=== PATIENT | male | born 1950 | race Caucasian/White ===

== ENCOUNTER → 2019-12-05 | Day surgery (SDC) | payer OTHER ==
--- NOTE | 2019-12-05 17:03 | RAD REPORT ---
EXAM DESCRIPTION: US - Guided FNA Non Breast - 12/05/2019 10:28 am CLINICAL HISTORY: E04.1 COMPARISON: September 2019 ultrasound TECHNIQUE: Risks, benefits and alternatives of procedure explained to the patient and informed conse nt obtained. Skin and subcutaneous tissues anesthetized with lidocaine. Under sonographic guidance, six 25 gauge needle passes were obtained into the dominant nodule within the left lobe of the thyroid gland. Specimens given to pathology. Patient experienced no immediate complication IMPRESSION: Fine-needle aspiration of a dominant nodule within left lobe of thyroid gland
== END ==
LOC: FNA 09:44
PROVIDERS: ATTEND Family Medicine
PROC: 0G9G3ZX Drainage of Left Thyroid Gland Lobe, Percutaneous Approach, Diagnostic (ICD-10-PCS; principal; 2019-12-05)
DX: E04.1 Nontoxic single thyroid nodule (principal)
CPT/HCPCS: 88162; 88305

== ENCOUNTER 2023-11-08 13:08 | Observation (INO) | payer OTHER ==
--- OUTSIDE RECORDS SUMMARY | 2023-11-08 13:11 | XMS REPORT | Continuity of Care Document ---
Author Name Unknown Address [address] [place] [address]. [address] th[address] Address [address] [facility]. 1 495 [place] [address] Care Team Providers Care Weaver Dobby Loom Name Role Phone Unavailable Unavailable Unavailable Payers Payer Name Policy Type Policy Number Effective Date Expirati on Date Source [facility] [id number] Encounters Start Date/Time End Date/Time Encounter Type Admission Type Attending [facility] Care Facility Care Department Encounter ID Source 2021-05-01 08:11:17 Outpatient [facility] [id number] [facility]
[2023-11-08 13:52] LABS: Absolute Basophils 0.1 K/uL (0-0.5); Absolute Lymphocytes (CBC) 1.1 K/uL (0.7-4.9); Absolute Monocytes 0.8 K/uL (0.1-1.3); Absolute Neutrophil 5.8 K/uL (1.8-8.0); Basophils % 1.1 % (0-1.3); Eosinophils % 0.4 % (0-4.4); Hematocrit 48.1 % (39.6-49.0); Hemoglobin 16.3 g/dL (13.6-17.9); Lymphocytes % 14.3 % (15.3-44.8); MCH 30.6 pg (27.0-35.0); MPV 9.4 fL (7.6-11.3); Monocytes % 10.6 % (3.3-12.3); Neutrophils % 73.6 % (41.7-73.7); Nucleated Red Blood Cells % 0.1 % (0-0); Platelets 158 thou/uL (152-406); RBC Red Blood Cell Count 5.34 M/uL (4.33-5.43); Red Cell Distribution Width 13.3 % (12.1-15.2)
[2023-11-08 14:17] LABS: Albumin 4.1 g/dL (3.4-5.0); Albumin/Globulin Ratio 1.2 (1.1-1.8); Bilirubin Direct 0.2 mg/dL (0-0.2); Bilirubin Indirect, Calculated 0.4 mg/dL (0.2-0.8); Bilirubin Total 0.6 mg/dL (0.2-1.0); Globulin 3.3 g/dL (2.3-3.5); Magnesium 2.1 mg/dL (1.6-2.4); Protein, Total 7.4 g/dL (6.4-8.2); Thyroid Stimulating Hormone 1.62 uIU/mL (0.358-3.740)
--- NOTE | 2023-11-08 14:49 | RAD REPORT ---
EXAM DESCRIPTION: [place] Single View11/08/2023 2:20 pm CLINICAL HISTORY: CHEST PAIN COMPARISON: No comparisons TECHNIQUE: Portable AP view of the chest. FINDINGS: The lungs are clear. No pneumothorax or effusion. The cardiomediastinal contours are unre markable. IMPRESSION: No acute cardiopulmonary process.
--- NOTE | 2023-11-08 17:09 | ER ---
Nurse's Notes [facility] Name: Roland Barton Age: 73 yrs Sex: Male : 1950 Arrival Date: 11/08/2023 Time: 13:08 Bed 4 Private MD: Rigo Arrieta Diagnosis: Nonsustained V. tach Presentation: 11/07 13:21 Chief complaint: Patient states: sent from Dr. Arrieta office, possible Vtach, has been iw having episodes of passing out over past 2 weeks. Coronavirus screen: At this time, the client does not indicate any symptoms associated with coronavirus-19. Ebola Screen: Patient negative for fever greater than or equal to 101.5 degrees Fahrenheit, and additional compatible Ebola Virus Disease symptoms Patient denies exposure to infectious person. Patient denies travel to an Ebola-affected area in the 21 days before illness onset. No symptoms or risks identified at this time. Initial Sepsis Screen: Does the patient meet any 2 criteria? No. Patient's initial sepsis screen is negative. Does the patient have a suspected source of infection? No. Patient's initial sepsis screen is negative. Risk Assessment: Do you want to hurt yourself or someone else? Patient reports no desire to harm self or others. 13:21 Method Of Arrival: Ambulatory iw 13:21 Acuity: ALEXIA 2 iw 13:31 Onset of symptoms was November 08, 2023. db Triage Assessment: 13:31 General: Appears in no apparent distress. comfortable, Behavior is calm, cooperative. db Pain: Denies pain. Neuro: Level of Consciousness is awake, alert, obeys commands, Oriented to person, place, time, situation, Cost Coordinator are. Cardiovascular: Reports lightheadedness, syncope. Respiratory: Airway is patent Respiratory effort is even, unlabored, Respiratory pattern is regular, symmetrical. GI: No deficits noted. No signs and/or symptoms were reported involving the gastrointestinal system. : No deficits noted. No signs and/or symptoms were reported regarding the genitourinary system. Derm: No deficits noted. No signs and/or symptoms reported regarding the dermatologic system. Historical: - Allergies: 13:31 No Known Allergies; db - PMHx: 13:31 None; db - Immunization history:: Adult Immunizations unknown. - Infectious Disease History:: Denies. - Social history:: Smoking status: Patient denies any tobacco usage or history of. - Family history:: not pertinent. Screenin:24 [facility] ED Fall Risk Assessment (Adult) History of falling in the last 3 months, db including since admission No falls in past 3 months (0 pts) Confusion or Disorientation No (0 pts) Intoxicated or Sedated No (0 pts) Impaired Gait No (0 pts) Mobility Assist Device Used No (0 pt) Altered Elimination No (0 pt) Score/Fall Risk Level 0 - 2 = Low Risk Oriented to surroundings, Maintained a safe environment. Abuse screen: Denies threats or abuse. Denies injuries from another. Nutritional screening: No deficits noted. Tuberculosis screening: No symptoms or risk factors identified. Assessment: 14:24 Reassessment: Patient appears in no apparent distress at this time. Patient and/or db family updated on plan of care and expected duration. Pain level reassessed. Patient is alert, oriented x 3, equal unlabored respirations, skin warm/dry/pink. General: Appears in no apparent distress. comfortable, Behavior is calm, cooperative, quiet. Neuro: Level of Consciousness is awake, alert, obeys commands, Oriented to person, place, time, situation. Respiratory: Airway is patent Respiratory effort is even, unlabored, Respiratory pattern is regular, symmetrical. 16:30 Reassessment: Patient appears in no apparent distress at this time. Patient is alert, bp oriented x 3, equal unlabored respirations, skin warm/dry/pink. 17:57 Reassessment: ADMIT INITIATED. bp 19:16 Reassessment: Patient and/or family updated on plan of care and expected duration. Pain tm6 level reassessed. Patient is alert, oriented x 3, equal unlabored respirations, skin warm/dry/pink. Vital Signs: 13:12 BP 170 / 104; Pulse 86; Resp 19; Temp 98.6; Pulse Ox 98% on R/A; Weight 97.52 kg; db Height 6 ft. 5 in. ; 14:00 BP 158 / 94; Pulse 85; Resp 18; Pulse Ox 95% on R/A; db 14:30 BP 159 / 107; Pulse 91; Resp 18; Pulse Ox 95% on R/A; db 16:30 BP 162 / 111; Pulse 82; Resp 24; Pulse Ox 96% ; bp 17:57 BP 135 / 87; Pulse 78; Resp 23; Pulse Ox 95% ; bp 19:15 BP 132 / 86; Pulse 95; Pulse Ox 95% on R/A; Pain 0/10; tm6 13:12 Body Mass Index 25.50 (97.52 kg, 195.58 cm) db 19:15 Pain Scale: Adult tm6 Aristides Coma Score: 20:27 Eye Response: spontaneous(4). Motor Response: obeys commands(6). Verbal Response: rv oriented(5). Total: 15. ED Course: 13:10 Patient arrived in ED. rg4 13:11 Rigo Arrieta MD is Private Physician. rg4 13:12 Carolina Arreola, RN is Primary Nurse. db 13:12 Jose Gonsalez MD is Attending Physician. rt 13:20 EKG done, by ED staff, reviewed by Jose Gonsalez MD. db 13:23 Triage completed. iw 13:23 Arm band placed on. iw 13:32 Troponin HS Sent. bp 13:32 NT PRO-BNP Sent. bp 13:32 Magnesium Sent. bp 13:32 LFT's Sent. bp 13:32 CBC with Diff Sent. bp 13:32 Basic Metabolic Panel Sent. bp 13:32 TSH Sent. bp 13:33 Inserted saline lock: 22 gauge in right forearm, using aseptic technique. Blood bp collected. 14:22 XRAY Chest (1 view) In Process Unspecified. EDMS 14:27 Patient has correct armband on for positive identification. Bed in low position. Call db light in reach. Side rails up X 1. Client placed on continuous cardiac and pulse oximetry monitoring. NIBP monitoring applied. property assessment monitor on. Pulse ox on. NIBP on. Warm blanket given. 17:08 Vu Velazquez MD is Hospitalizing Provider. rt 19:15 Provided Education on: wait time on hospital bed. Door closed. Noise minimized. Lights tm6 dimmed. Warm blanket given. Pillow given. 20:27 No provider procedures requiring assistance completed. Patient admitted, IV remains in rv place. Administered Medications: No medications were administered Medication: 14:24 VIS not applicable for this client. db Outcome: 17:08 Decision to Hospitalize by Provider. rt 20:27 Admitted to Tele accompanied by tech, via wheelchair, with chart, Report called to rv report faxed to 4th floor 20:27 Condition: good 20:27 Instructed on the need for admit, 20:42 Patient left the ED. rv Signatures: Dispatcher [employer] EDJudith Pruett, RN Tabatha Patton rg4 Wicho Fitch RN RN bp Naveen Birscoe RN RN rv Carolina Arreola RN RN db Jose Gonsalez MD MD rt Leslye Choi RN RN tm6 Corrections: (The following items were deleted from the chart) 14:23 13:12 BP 170 / 104; Pulse 86bpm; Resp 19bpm; Pulse Ox 98% RA; db db 14:24 13:12 BP 170 / 104; Pulse 86bpm; Resp 19bpm; Pulse Ox 98% RA; Temp 98.6F; db db
--- NOTE | 2023-11-08 17:09 | EDPHYS ---
Physician Documentation [facility] Name: Roland Barton Age: 73 yrs Sex: Male : 1950 Arrival Date: 11/08/2023 Time: 13:08 Bed 4 Private MD: Rigo Arrieta ED Physician Jose Gonsalez HPI: 11/07 14:09 This 73 yrs old Male presents to ER via Ambulatory with complaints of Abnormal EKG. rt 14:09 Patient presents to the ED from his primary care's office for having episodes of near rt syncope as well as ventricular tachycardia. This first happened a few weeks ago, patient was in [place], went to the hospital with a negative workup. Has never lost consciousness completely, but states that he gets very nauseated, short of breath when it happens. Status several episodes since then. Did have 1 episode his primary's office today. Did wear Holter monitor, finding episodes of V. tach. Currently, he has no symptoms. Symptoms are moderate in severity, no other aggravating or alleviating factors.. Historical: - Allergies: 13:31 No Known Allergies; db - PMHx: 13:31 None; db - Immunization history:: Adult Immunizations unknown. - Infectious Disease History:: Denies. - Social history:: Smoking status: Patient denies any tobacco usage or history of. - Family history:: not pertinent. ROS: 14:09 Constitutional: Negative for fever, chills, and weight loss, Cardiovascular: Negative rt for chest pain, palpitations, and edema, Respiratory: Negative for shortness of breath, cough, wheezing, and pleuritic chest pain, MS/Extremity: Negative for injury and deformity, Skin: Negative for injury, rash, and discoloration, Psych: Negative for depression, anxiety, suicide ideation, homicidal ideation, and hallucinations, 14:09 Abdomen/GI: Positive for nausea, Negative for abdominal pain, 14:09 Neuro: Positive for near syncope, Negative for loss of consciousness, Exam: 14:09 Constitutional: This is a well developed, well nourished patient who is awake, alert, rt and in no acute distress. Head/Face: Normocephalic, atraumatic. Chest/axilla: Normal chest wall appearance and motion. Nontender with no deformity. No lesions are appreciated. Cardiovascular: Regular rate and rhythm with a normal S1 and S2. No gallops, murmurs, or rubs. Normal PMI, no JVD. No pulse deficits. Respiratory: Lungs have equal breath sounds bilaterally, clear to auscultation and percussion. No rales, rhonchi or wheezes noted. No increased work of breathing, no retractions or nasal flaring. Abdomen/GI: Soft, non-tender, with normal bowel sounds. No distension or tympany. No guarding or rebound. No evidence of tenderness throughout. Skin: Warm, dry with normal turgor. Normal color with no rashes, no lesions, and no evidence of cellulitis. MS/ Extremity: Pulses equal, no cyanosis. Neurovascular intact. Full, normal range of motion. Neuro: Awake and alert, GCS 15, oriented to person, place, time, and situation. Cranial nerves II-XII grossly intact. Motor strength 5/5 in all extremities. Sensory grossly intact. Cerebellar exam normal. Normal gait. 14:09 ECG was reviewed by the Attending Physician. rt Vital Signs: 13:12 BP 170 / 104; Pulse 86; Resp 19; Temp 98.6; Pulse Ox 98% on R/A; Weight 97.52 kg; db Height 6 ft. 5 in. ; 14:00 BP 158 / 94; Pulse 85; Resp 18; Pulse Ox 95% on R/A; db 14:30 BP 159 / 107; Pulse 91; Resp 18; Pulse Ox 95% on R/A; db 16:30 BP 162 / 111; Pulse 82; Resp 24; Pulse Ox 96% ; bp 17:57 BP 135 / 87; Pulse 78; Resp 23; Pulse Ox 95% ; bp 19:15 BP 132 / 86; Pulse 95; Pulse Ox 95% on R/A; Pain 0/10; tm6 13:12 Body Mass Index 25.50 (97.52 kg, 195.58 cm) db 19:15 Pain Scale: Adult tm6 [place] Coma Score: 20:27 Eye Response: spontaneous(4). Motor Response: obeys commands(6). Verbal Response: rv oriented(5). Total: 15. MDM: 13:12 Patient medically screened. rt 18:44 Differential Diagnosis Dysrhythmia, ACS. Data reviewed: vital signs, nurses notes, lab rt test result(s), EKG, radiologic studies. Consideration of Admission/Observation Patient was admitted/placed on observation. Management of patient was discussed with the following: Sand Digger: Discussed with cardiology on-call, recommends n.p.o. past midnight, echocardiogram.. Independent interpretation of the following test(s) in the Emergency Department X-Ray: My interpretation is No edema seen on interpretation of x-ray images. Care significantly affected by the following chronic conditions: Hypertension. Counseling: I had a detailed discussion with the patient and/or guardian regarding the historical points, exam findings, and any diagnostic results supporting the discharge/admit diagnosis, lab results, radiology results, the need for further work-up and treatment in the hospital. 11/07 13:25 Order name: Basic Metabolic Panel; Complete Time: 14:19 rt 11/07 13:25 Order name: CBC with Diff; Complete Time: 14:09 rt 11/07 13:25 Order name: LFT's; Complete Time: 14:19 rt 11/07 13:25 Order name: Magnesium; Complete Time: 14:19 rt 11/07 13:25 Order name: NT PRO-BNP; Complete Time: 14:19 rt 11/07 13:25 Order name: Troponin HS; Complete Time: 14:19 rt 11/07 13:25 Order name: TSH; Complete Time: 14:19 rt 11/07 13:25 Order name: XRAY Chest (1 view); Complete Time: 14:53 rt 11/07 13:25 Order name: Cardiac monitoring; Complete Time: 13: rt 11/07 13:25 Order name: EKG - Nurse/Tech; Complete Time: 13:26 rt 11/07 13:25 Order name: IV Saline Lock; Complete Time: 13: rt 11/07 13:25 Order name: Labs collected and sent; Complete Time: 13:32 rt 11/07 13:25 Order name: O2 Per Protocol; Complete Time: 13: rt 11/07 13:25 Order name: O2 Sat Monitoring; Complete Time: : rt EC:09 Rate is 84 beats/min. Rhythm is regular, Normal Sinus Rhythm with No ectopy, rt Bifascicular block noted. QRS [place] is Normal. OR interval is normal. QRS interval is normal. No Q waves. Administered Medications: No medications were administered Disposition Summary: 11/08/23 17:08 Hospitalization Ordered Notes: Hospitalization Status: Observation rt Provider: Vu Velazuqez rt Location: Telemetry/MedSurg (observation) rt Condition: Stable rt Problem: new rt Symptoms: have improved rt Bed/Room Type: Standard rt Room Assignment: 426(11/08/23 19:43) wm Diagnosis - Nonsustained V. tach rt Forms: - Medication Reconciliation Form rt - SBAR form rt - Leadership Thank You Letter rt Signatures: Dispatcher [employer] EDMS Lacey Baron wm Carolina Arreola RN RN db Jose Gonsalez MD MD rt Corrections: (The following items were deleted from the chart) 13:26 13:26 BASIC METABOLIC PANEL+C.LAB.BRZ ordered. EDMS EDMS 13:26 13:26 CBC+H.LAB.BRZ ordered. EDMS EDMS 13:26 13:26 HEPATIC FUNCTION+C.LAB.BRZ ordered. EDMS EDMS 13:26 13:26 MAGNESIUM+C.LAB.BRZ ordered. EDMS EDMS 13:26 13:26 PROBNP+C.LAB.BRZ ordered. EDMS EDMS 13:26 13:26 Troponin High Sensitivity+C.LAB.BRZ ordered. EDMS EDMS 13:26 13:26 THYROID STIMULAT HORMONE+C.LAB.BRZ ordered. EDMS EDMS 13:26 13:26 Chest Single View+RAD.RAD.BRZ ordered. EDMS EDMS 19:43 17:08 rt wm
--- NOTE | 2023-11-08 17:42 | P.HP ---
Certification for Inpatient Patient admitted to: Observation With expected LOS: <2 Midnights Patient will require the following post-hospital care: None Practitioner: I am a practitioner with admitting privileges, knowledge of patient current condition, hospital course, and medical plan of care. Services: Services provided to patient in accordance with Admission requirements found in Title 42 Section 412.3 of the Code of Federal Regulations Patient History Date of Service: 11/08/23 Reason for admission: Ventricular arrhythmia History of Present Illness: 73-year-old male with history of hyperlipidemia, BPH presents emergency department after being referred here by her primary care doctor for abnormal heart monitor testing. Approximately 1 week ago he was given a Holter monitor or other cardiac monitoring device which she wore for 2 days and his primary care doctor sent him here stating that he had many "ventricular beats". Patient does admit to episodes of shortness of breath, nausea, near syncope in the last 4 weeks. Patient denies any previous cardiac evaluation including echocardiogram, stress test or heart catheterization. Patient was evaluated in the emergency department, EKG showed bifascicular block. Labs were significant for creatinine of 1.3, GFR 57, glucose 129 magnesium and potassium within normal limits. ED prior wishes to admit patient for suspected ventricular arrhythmia, near syncope - Past Medical/Surgical History -: Hyperlipidemia -: BPH -: None Psychosocial/ Personal History: Patient is retired, lives home with his - Family History Father -: Heart disease - Social History Smoking Status: Never smoker Alcohol use: Yes CD- Drugs: No Caffeine use: Yes Place of Residence: Home Review of Systems 10-point ROS is otherwise unremarkable Respiratory: Shortness of Breath Gastrointestinal: Nausea Physical Examination - Physical Exam General: Alert, In no apparent distress, Oriented x3 HEENT: Atraumatic, PERRLA, Mucous membr. moist/pink Neck: Supple, 2+ carotid pulse no bruit, No LAD Respiratory: Clear to auscultation bilaterally, Normal air movement Cardiovascular: Regular rate/rhythm, Normal S1 S2 Gastrointestinal: Normal bowel sounds, No tenderness Musculoskeletal: No tenderness Integumentary: No rashes Neurological: Normal speech, Normal strength at 5/5 x4 extr, Normal tone, Normal affect - Studies Laboratory Data (last 24 hrs) 11/08/23 11/08/23 13:35 13:35 WBC 7.80 Hgb 16.3 Hct 48.1 Plt Count 158 Sodium 140 Potassium 4.0 BUN 23 H Creatinine 1.31 H Glucose 129 H Magnesium 2.1 Total Bilirubin 0.6 AST 17 ALT 37 Alkaline Phosphatase 55 Assessment and Plan - Plan Assessment: Near syncopal episodes, reported ventricular arrhythmia Bifascicular block Hyperlipidemia BPH Plan: Near syncopal episodes, reported ventricular arrhythmia Bifascicular block Cardiology consulted, contacted by ED staff Monitor on telemetry, n.p.o. after midnight for possible cardiac evaluation EKG shows bifascicular block Appreciate further input from cardiology Hyperlipidemia BPH Continue medications once verified DVT PPX: Lovenox Code status: Full Discharge Plan: Home Plan to discharge in: 24 Hours - Advance Directives Does patient have a Living Will: No Does patient have a Durable POA for Healthcare: No - Code Status/Comfort Care Code Status Assessed: Yes (Full code) Critical Care: No Time Spent Managing Pts Care (In Minutes): 70
[2023-11-08] MEDS ORDERED: ACETAMINOPHEN 500 MG TAB PO PRN (20:51)
[2023-11-08 21:20] VITALS: O2SAT 95
[2023-11-08] MEDS: ROSUVASTATIN 10 MG TAB PO SCH (21:40)
[2023-11-08] MEDS: NA CHLORIDE 0.9% 1,000 ML IV SCH (21:42)
[2023-11-08 22:19] VITALS: BMI 25.4
[2023-11-09 06:48] LABS: Absolute Basophils 0.1 K/uL (0-0.5); Absolute Eosinophils 0.1 K/uL (0-0.5); Absolute Lymphocytes (CBC) 1.7 K/uL (0.7-4.9); Absolute Neutrophil 5.6 K/uL (1.8-8.0); Basophils % 0.8 % (0-1.3); Eosinophils % 0.9 % (0-4.4); Hematocrit 46.9 % (39.6-49.0); Hemoglobin 16.1 g/dL (13.6-17.9); Lymphocytes % 20.3 % (15.3-44.8); MCH 30.6 pg (27.0-35.0); MCHC 34.4 g/dL (32.0-36.0); MCV 89.1 fL (80-100); MPV 9.1 fL (7.6-11.3); Monocytes % 11.9 % (3.3-12.3); Neutrophils % 66.1 % (41.7-73.7); Nucleated Red Blood Cells % 0.1 % (0-0); Platelets 155 thou/uL (152-406); RBC Red Blood Cell Count 5.27 M/uL (4.33-5.43); Red Cell Distribution Width 13.2 % (12.1-15.2)
[2023-11-09 06:58] LABS: Magnesium 2.2 mg/dL (1.6-2.4)
[2023-11-09] MEDS: ENOXAPARIN 40 MG/0.4 ML SQ SCH (09:00)
--- NOTE | 2023-11-09 14:10 | ECHO ---
HEIGHT: 6 ft 5 in WEIGHT: 215 lb 0 oz DATE OF STUDY: 11/09/[address]: Kory Goldsmith NP 2-DIMENSIONAL: YES M.MODE: YES DOPPLER: YES COLOR FLOW: YES TDS: PORTABLE: YES DEFINITY: BUBBLE STUDY: DIAGNOSIS: VENTRICULAR TACHYCARDIA/ NEAR SYNCOPE CARDIAC HISTORY: CATHERIZATION: SURGERY: PROSTHETIC VALVE: PACEMAKER: MEASUREMENTS (cm) DIASTOLIC (NORMALS) SYSTOLIC (NORMALS) IVSd 1.0 (0.6-1.2) LA Diam 3.2 (1.9-4.0) LVEF 71% LVIDd 5.0 (3.5-5.7) LVIDs 3.0 (2.0-3.5) %FS 41% LVPWd 1.1 (0.6-1.2) Ao Diam 3.5 (2.0-3.7) 2 DIMENSIONAL ASSESSMENT: RIGHT ATRIUM: NORMAL LEFT ATRIUM: NORMAL RIGHT VENTRICLE: NORMAL LEFT VENTRICLE: NORMAL TRICUSPID VALVE: NORMAL MITRAL VALVE: NORMAL PULMONIC VALVE: NORMAL AORTIC VALVE: NORMAL PERICARDIAL EFFUSION: NONE AORTIC ROOT: NORMAL LEFT VENTRICULAR WALL MOTION: NORMAL DOPPLER/COLOR FLOW: NORMAL COMMENTS: 1. NORMAL LEFT VENTRICULAR SYSTOLIC FUNCTION, EJECTION FRACTION 55-60%, NORMAL WALL MOTION 2. NORMAL DIASTOLIC FUNCTION TECHNOLOGIST: REENA GARZON
--- NOTE | 2023-11-09 16:36 | P.CNS ---
Date of Consult: 11/09/23 Chief Complaint: Ventricular arrhythmia History of Present Illness: Patient with no significant PMH presented from PCP office due to abnormal Holter showing NSVT, patient report history of palpitations, dizziness and occasional chest pain that last for few seconds. no syncope. Allergies No Known Allergies Allergy (Unverified 11/08/23 19:50) Home Medications: Mirabegron [Myrbetriq] 25 mg PO DAILY 11/08/23 Rosuvastatin [Crestor*] 10 mg PO BEDTIME 11/08/23 - Past Medical/Surgical History Diabetic: No -: Hyperlipidemia -: BPH -: None Psychosocial/ Personal History: Patient is retired, lives home with his - Family History Father Medical History: Heart disease - Social History Alcohol use: No CD- Drugs: No Caffeine use: Yes Place of Residence: Home Review of Systems 10-point ROS is otherwise unremarkable Physical Examination Temp Pulse Resp BP Pulse Ox 97.7 F 65 18 154/90 H 97 11/09/23 12:00 11/09/23 12:00 11/09/23 12:00 11/09/23 12:00 11/09/23 12:00 General: Alert, Oriented x3 HEENT: Atraumatic Neck: Supple Respiratory: Clear to auscultation bilaterally Cardiovascular: No edema, Normal S1 S2 Gastrointestinal: Normal bowel sounds - Problems (1) NSVT (nonsustained ventricular tachycardia) Current Visit: Yes Status: Acute Plan: plan is to do coronary angiogram as outpatient. as patient is having those NSVT and occasional chest pain, will schedule early next week. Start patient on Toprol XL 25 mg daily. Patient Echo shows normal EF. (2) HTN (hypertension) Current Visit: Yes Status: Acute Plan: Toprol XL 25 mg daily
[2023-11-09 17:30] VITALS: BP 124/90; TEMP 97.8
--- NOTE | 2023-11-12 13:11 | EKG ---
Test Date: 2023-11-08 Test Time: 13:16:16 Fiber Artist: HIRAM MEASUREMENT RESULTS: Intervals: Rate: 84 NE: 194 QRSD: 164 QT: 418 QTc: 493 [place]: P: 29 NE: 194 QRS: -90 T: 58 INTERPRETIVE STATEMENTS: Normal sinus rhythm Right bundle branch block Left anterior fascicular block Bifascicular block Abnormal ECG No previous ECG available for comparison Electronically Signed On 11-12-23 12:59:32 CDT by Sravan Levi
== END 2023-11-09 17:28 | disposition home or self-care (01) ==
LOC: ER 13:08 → ERHOLD 17:33 → 4TH 20:15
PROVIDERS: ADMIT Hospitalist; ATTEND Hospitalist
DX: I47.20 Ventricular tachycardia, unspecified (principal); I45.2 Bifascicular block; R55 Syncope and collapse; E78.5 Hyperlipidemia, unspecified; N40.0 Benign prostatic hyperplasia without lower urinary tract symptoms; R06.02 Shortness of breath; R11.0 Nausea; I10 Essential (primary) hypertension
CPT/HCPCS: 93005; 93306; 85025 ×2; 80048 ×2; 36415; 83735 ×2; 80076; 84443; 84484 ×3; 83880; 71045; J7030 ×2; G0378 ×4

== ENCOUNTER 2023-11-12 05:48 | Emergency (ER) | payer OTHER ==
--- OUTSIDE RECORDS SUMMARY | 2023-11-12 05:51 | XMS REPORT | Continuity of Care Document ---
Author Name Unknown Address [address] [place] [address] thconnect Address [address] [place] [address] 1 495 [place] [address] Care Team Providers Care Director Of Application Development Name Role Phone Unavailable Unavailable Unavailable Payers Payer Name Policy Type Policy Number Effective Date Expirati on Date Source [facility] [id number] Encounters Start Date/Time End Date/Time Encounter Type Admission Type Attending [facility] Facility Care Department Encounter ID Source 2021-05-01 08:11:17 Outpatient [facility] [id number] [facility]
[2023-11-12 06:29] LABS: Absolute Basophils 0.1 K/uL (0-0.5); Absolute Eosinophils 0.1 K/uL (0-0.5); Absolute Lymphocytes (CBC) 1.7 K/uL (0.7-4.9); Absolute Neutrophil 4.8 K/uL (1.8-8.0); Eosinophils % 0.7 % (0-4.4); Hematocrit 47.8 % (39.6-49.0); Hemoglobin 16.1 g/dL (13.6-17.9); Lymphocytes % 22.4 % (15.3-44.8); MCH 30.3 pg (27.0-35.0); MCHC 33.7 g/dL (32.0-36.0); MCV 89.8 fL (80-100); MPV 9.4 fL (7.6-11.3); Monocytes % 12.9 % (3.3-12.3); Platelets 153 thou/uL (152-406); RBC Red Blood Cell Count 5.32 M/uL (4.33-5.43); Red Cell Distribution Width 13.4 % (12.1-15.2)
[2023-11-12 06:53] LABS: Albumin 4.1 g/dL (3.4-5.0); Albumin/Globulin Ratio 1.4 (1.1-1.8); Anion Gap 7.8 mEq/L (5.0-15.0); Bilirubin Direct 0.2 mg/dL (0-0.2); Bilirubin Indirect, Calculated 0.6 mg/dL (0.2-0.8); Bilirubin Total 0.8 mg/dL (0.2-1.0); Magnesium 2.2 mg/dL (1.6-2.4); Potassium 3.8 mEq/L (3.5-5.1); Protein, Total 7.1 g/dL (6.4-8.2); Troponin High Sensitivity 6.9 pg/mL (<58.9)
[2023-11-12 07:15] LABS: PT Prothrombin Time 12.4 SECONDS (9.5-12.5); Protime INR 1.13
--- NOTE | 2023-11-12 07:44 | ER ---
Nurse's Notes [facility] Name: Roland Barton Age: 73 yrs Sex: Male : 1950 Arrival Date: 11/12/2023 Time: 05:48 Bed 17 Private MD: Rigo Arrieta Diagnosis: Essential (primary) hypertension;Palpitations Presentation: 11/11 05:57 Chief complaint: Patient states: elevated BP 179/107 this AM with left upper inner arm pf1 pain at 0000 that lasted until 0100. Patient denies any pain at this time. Patient stated recently started taking Metoprolol 25 mg and took 1 tablet at 0515 this AM. Patient denies any chest pain. 05:57 Coronavirus screen: Vaccine status: Client denies travel out of the [place] in the last 14 pf1 days. At this time, the client does not indicate any symptoms associated with coronavirus-19. Ebola Screen: Patient negative for fever greater than or equal to 101.5 degrees Fahrenheit, and additional compatible Ebola Virus Disease symptoms. Initial Sepsis Screen: Does the patient meet any 2 criteria? No. Patient's initial sepsis screen is negative. Does the patient have a suspected source of infection? No. Patient's initial sepsis screen is negative. Risk Assessment: Do you want to hurt yourself or someone else? Patient reports no desire to harm self or others. Onset of symptoms was November 12, 2023. Care prior to arrival: Medication(s) given: Metoprolol 25mg at 0515. 05:57 Method Of Arrival: Ambulatory pf1 05:57 Acuity: ALEXIA 3 pf1 Triage Assessment: 06:00 General: Appears in no apparent distress. comfortable, well groomed, well developed, pf1 Behavior is calm, cooperative, appropriate for age, quiet. 06:00 Pain: Denies pain. EENT: No deficits noted. No signs and/or symptoms were reported pf1 regarding the EENT system. Neuro: No deficits noted. Level of Consciousness is awake, alert, obeys commands, Oriented to person, place, time, situation. Cardiovascular: Reports elevated BP Capillary refill < 3 seconds Patient's skin is warm and dry. Respiratory: No deficits noted. Airway is patent Respiratory effort is even, unlabored, Respiratory pattern is regular, symmetrical. GI: No deficits noted. No signs and/or symptoms were reported involving the gastrointestinal system. : No deficits noted. No signs and/or symptoms were reported regarding the genitourinary system. Derm: No deficits noted. No signs and/or symptoms reported regarding the dermatologic system. Musculoskeletal: Reports pain in left arm since 0000, that resolved at 0100 this AM.. Historical: - Allergies: 06:20 No Known Allergies; pf1 - PMHx: 06:20 VT; Hypertensive disorder; pf1 - PSHx: 06:20 None; pf1 - Immunization history:: Adult Immunizations up to date, 3 doses of Moderna Last tetanus immunization: < 10 years ago Flu vaccine is up to date. - Infectious Disease History:: Denies. - Social history:: Smoking status: Patient denies any tobacco usage or history of. Patient uses alcohol, on a daily basis. Patient/guardian denies using street drugs. - Family history:: not pertinent. - Hospitalizations: : The patient was recently seen at [facility]. Screenin:28 [facility] ED Fall Risk Assessment (Adult) History of falling in the last 3 months, pf1 including since admission No falls in past 3 months (0 pts) Confusion or Disorientation No (0 pts) Intoxicated or Sedated No (0 pts) Impaired Gait No (0 pts) Mobility Assist Device Used No (0 pt) Altered Elimination No (0 pt) Score/Fall Risk Level 0 - 2 = Low Risk Oriented to surroundings, Maintained a safe environment, Educated pt \T\ family on fall prevention, incl call for assistance when getting out of bed, Assessed \T\ reinforced patient's understanding of fall precautions, Provided non-skid footwear, Hourly rounding (assess needs \T\ fall precautionary measures) done, Used ambulatory aids as needed (educated on \T\ assisted with), Used gait belt as appropriate. Abuse screen: Denies threats or abuse. Nutritional screening: No deficits noted. Tuberculosis screening: No symptoms or risk factors identified. Assessment: 06:00 Reassessment: see triage assessment. pf1 06:53 Reassessment: Patient appears in no apparent distress at this time. Patient and/or pf1 family updated on plan of care and expected duration. Pain level reassessed. Patient is alert, oriented x 3, equal unlabored respirations, skin warm/dry/pink. 07:00 General: Appears in no apparent distress. comfortable, Behavior is calm, cooperative. rs5 Pain: Denies pain. Neuro: Level of Consciousness is awake, alert, obeys commands, Oriented to person, place, time, situation. Cardiovascular: Patient's skin is warm and dry. Rhythm is regular. Respiratory: Airway is patent Respiratory effort is even, unlabored, Respiratory pattern is regular, symmetrical. GI: Abdomen is round non-distended, Abd is soft and non tender X 4 quads. : No signs and/or symptoms were reported regarding the genitourinary system. EENT: No signs and/or symptoms were reported regarding the EENT system. Derm: Skin is intact, Skin is pink, warm \T\ dry. Musculoskeletal: Range of motion: intact in all extremities. 07:45 Reassessment: No changes from previously documented assessment. rs5 Vital Signs: 05:57 BP 152 / 84; Pulse 70; Resp 16; Temp 98.6; Pulse Ox 97% on R/A; Weight 97.52 kg; Height pf1 6 ft. 5 in. ; Pain 0/10; 06:45 BP 154 / 69; Pulse 67; Resp 14; Pulse Ox 97% on R/A; Pain 0/10; pf1 07:46 BP 150 / 93; Pulse 68; Resp 18; Pulse Ox 99% on R/A; rs5 05:57 Body Mass Index 25.50 (97.52 kg, 195.58 cm) pf1 05:57 Pain Scale: Adult pf1 06:45 Pain Scale: Adult pf1 ED Course: 05:54 Patient arrived in ED. gm2 05:55 Rigo Arrieta MD is Private Physician. gm2 05:59 Tom Moura MD is Attending Physician. sp4 06:00 Arm band placed on right wrist. pf1 06:00 Patient has correct armband on for positive identification. Placed in gown. Bed in low pf1 position. Call light in reach. 06:00 Door closed. Noise minimized. Moved to private room. Warm blanket given. Pillow given. pf1 06:11 EKG done, by ED staff, reviewed by Tom Moura MD. oe 06:20 Triage completed. pf1 06:20 No provider procedures requiring assistance completed. Initial lab(s) drawn, by ED pf1 staff, sent to lab. 06:21 Inserted saline lock: 20 gauge in right forearm, using aseptic technique. Blood oe collected. 06:25 XRAY Chest (1 view) In Process Unspecified. EDMS 07:15 Attending Physician role handed off by Tom Moura MD rn 07:15 John Velazquez MD is Attending Physician. rn 07:43 Sravan Levi MD is Referral Physician. rn 07:45 Jose Miguel Alegria, SKYLA is Primary Nurse. rs5 07:55 IV discontinued, intact, bleeding controlled, No redness/swelling at site. Pressure rs5 dressing applied. Administered Medications: No medications were administered Medication: 07:55 VIS not applicable for this client. rs5 Outcome: 07:43 Discharge ordered by MD. rn 07:55 Discharged to home ambulatory, with family, rs5 07:55 Condition: stable 07:55 Discharge instructions given to patient, family, Instructed on discharge instructions, follow up and referral plans. Demonstrated understanding of instructions, follow-up care, 07:55 Patient left the ED. rs5 Signatures: Dispatcher [employer] EDID John Velazquez MD MD rn Espinosa, Orlando oe Finley, Pamala RN RN pf1 Jose Miguel Alegria, SKYLA RN rs5 Tom Moura MD MD 4 Valerie Marie [facility]
--- NOTE | 2023-11-12 07:44 | EDPHYS ---
Physician Documentation [facility] Name: Roland Barton Age: 73 yrs Sex: Male : 1950 Arrival Date: 11/12/2023 Time: 05:48 Bed 17 Private MD: Rigo Arrieta ED Physician John Velazquez HPI: 11/11 07:38 This 73 yrs old Male presents to ER via Ambulatory with complaints of High Blood rn Pressure. 07:38 The patient has elevated blood pressure and discovered this at home. Onset: The rn symptoms/episode began/occurred this morning. Modifying factors: The symptoms are alleviated by prescription meds. Associated signs and symptoms: Pertinent negatives: chest pain, headache, visual changes, vomiting, weakness. Severity of symptoms: At its worst the blood pressure was moderate, in the emergency department the blood pressure is improved. The patient has experienced similar episodes in the past. Patient states recently admitted for high blood pressure and irregular heart rate. Told might have ventricular tachycardia. Had a normal echo and workup and unable to get cath here during his hospitalization. Sent home and told to follow-up to get outpatient cath. Patient reports this morning began to feel irregular heart rate again and checked his blood pressure and was elevated. Took his prescribed metoprolol with improvement of symptoms. No syncope. No chest pain. No shortness of breath. No abdominal pain. Currently denies any symptoms and feels much better.. Historical: - Allergies: 06:20 No Known Allergies; pf1 - PMHx: 06:20 VT; Hypertensive disorder; pf1 - PSHx: 06:20 None; pf1 - Immunization history:: Adult Immunizations up to date, 3 doses of Moderna Last tetanus immunization: < 10 years ago Flu vaccine is up to date. - Infectious Disease History:: Denies. - Social history:: Smoking status: Patient denies any tobacco usage or history of. Patient uses alcohol, on a daily basis. Patient/guardian denies using street drugs. - Family history:: not pertinent. - Hospitalizations: : The patient was recently seen at [facility]. ROS: 07:38 Constitutional: Negative for fever, chills, and weight loss, Neck: Negative for injury, rn pain, and swelling, Cardiovascular: Positive for palpitations, negative for chest pain Respiratory: Negative for shortness of breath, cough, wheezing, and pleuritic chest pain, Abdomen/GI: Negative for abdominal pain, nausea, vomiting, diarrhea, and constipation, MS/Extremity: Negative for injury and deformity, Skin: Negative for injury, rash, and discoloration, Neuro: Negative for headache, weakness, numbness, tingling, and seizure, Exam: 07:38 Constitutional: This is a well developed, well nourished patient who is awake, alert, rn and in no acute distress. Cardiovascular: Regular rate, irregular rhythm. No pulse deficits. Respiratory: Speaking full sentences, unlabored. No increased work of breathing, no retractions or nasal flaring. MS/ Extremity: Pulses equal, no cyanosis. Neuro: Awake and alert, GCS 15 13:51 ECG was reviewed by the Attending Physician. rn Vital Signs: 05:57 BP 152 / 84; Pulse 70; Resp 16; Temp 98.6; Pulse Ox 97% on R/A; Weight 97.52 kg; Height pf1 6 ft. 5 in. ; Pain 0/10; 06:45 BP 154 / 69; Pulse 67; Resp 14; Pulse Ox 97% on R/A; Pain 0/10; pf1 07:46 BP 150 / 93; Pulse 68; Resp 18; Pulse Ox 99% on R/A; rs5 05:57 Body Mass Index 25.50 (97.52 kg, 195.58 cm) pf1 05:57 Pain Scale: Adult pf1 06:45 Pain Scale: Adult pf1 MDM: 06:00 Patient medically screened. sp4 07:38 Differential diagnosis: hypertensive crisis, Malignant HTN, Tachycardia, arrhythmia, rn electrolyte disorder, anxiety. Data reviewed: vital signs, nurses notes, lab test result(s), EKG, radiologic studies, plain films, and as a result, I will discharge patient. Care significantly affected by the following chronic conditions: Hypertension. Counseling: I had a detailed discussion with the patient and/or guardian regarding the historical points, exam findings, and any diagnostic results supporting the discharge/admit diagnosis, lab results, radiology results, the need for outpatient follow up, to return to the emergency department if symptoms worsen or persist or if there are any questions or concerns that arise at home. Special discussion: I discussed with the patient/guardian in detail that at this point there is no indication for admission to the hospital. It is understood, however, that if the symptoms persist or worsen the patient needs to return immediately for re-evaluation. 07:43 ED course: Patient plans to walk over to Dr. Dowling office upon discharge from the rn emergency room. His already has an appointment so he is going to discuss outpatient cath at that time. Will continue his metoprolol as prescribed.. 11/11 05:59 Order name: Basic Metabolic Panel; Complete Time: 07:15 sp4 11/11 05:59 Order name: CBC with Diff; Complete Time: 07:15 sp4 11/11 05:59 Order name: LFT's; Complete Time: 07:15 sp4 11/11 05:59 Order name: Magnesium; Complete Time: 07:15 sp4 11/11 05:59 Order name: NT PRO-BNP; Complete Time: 07:15 sp4 11/11 05:59 Order name: PT-INR; Complete Time: 07:15 sp4 11/11 05:59 Order name: Troponin HS; Complete Time: 07:15 sp4 11/11 05:59 Order name: XRAY Chest (1 view) 4 11/11 05:59 Order name: Cardiac monitoring; Complete Time: 06:11 sp4 11/11 05:59 Order name: EKG - Nurse/Tech; Complete Time: 06:11 sp4 11/11 05:59 Order name: IV Saline Lock; Complete Time: 06:32 sp4 11/11 05:59 Order name: Labs collected and sent; Complete Time: 06:32 sp4 11/11 05:59 Order name: O2 Per Protocol; Complete Time: 06:16 sp4 11/11 05:59 Order name: O2 Sat Monitoring; Complete Time: 06:16 4 EC:51 Rate is 68 beats/min. Rhythm is regular. Left axis deviation noted. QRS is positive in rn lead I and negative in lead aVF. SD interval is normal. No Q waves. T waves are Normal. No ST changes noted. Clinical impression: NSR w/ Non-specific ST/T Changes. Interpreted by me. Reviewed by me. Administered Medications: No medications were administered Disposition Summary: 11/12/23 07:43 Discharge Ordered Notes: Location: Home rn Problem: new rn Symptoms: have improved rn Condition: Stable rn Diagnosis - Essential (primary) hypertension rn - Palpitations rn Followup: rn - With: Sravan Levi MD - When: Today - Reason: Recheck today's complaints, Re-evaluation by your physician Discharge Instructions: - Hypertension, Adult rn - Palpitations rn - Managing Your Hypertension rn - Discharge Summary Sheet cm10 Forms: - Medication Reconciliation Form rn - Antibiotic rn palliative care - Prescription Opioid Use rn - Patient Portal Instructions rn - Leadership Thank You Letter rn - SBAR form cm10 Signatures: Dispatcher [employer] EDMS John Velazquez MD MD rn Finley, Pamala, RN RN pf1 Tom Moura MD MD sp4 Corrections: (The following items were deleted from the chart) 06:00 06:00 BASIC METABOLIC PANEL+C.LAB.BRZ ordered. EDMS EDMS 06:00 06:00 CBC+H.LAB.BRZ ordered. EDMS EDMS 06:00 06:00 HEPATIC FUNCTION+C.LAB.BRZ ordered. EDMS EDMS 06:00 06:00 MAGNESIUM+C.LAB.BRZ ordered. EDMS EDMS 06:00 06:00 PROBNP+C.LAB.BRZ ordered. EDMS EDMS 06:00 06:00 PROTIME (+INR)+COAG.LAB.BRZ ordered. EDMS EDMS 06:00 06:00 Troponin High Sensitivity+C.LAB.BRZ ordered. EDMS EDMS 06:00 06:00 Chest Single View+RAD.RAD.BRZ ordered. EDMS EDMS
[2023-11-12 08:06] VITALS: BP 150/93; TEMP 98.6; O2SAT 99
--- NOTE | 2023-11-12 12:49 | RAD REPORT ---
CLINICAL HISTORY: CHEST PAIN COMPARISON: None. TECHNIQUE: XR CHEST 1 VIEW 11/12/2023 5:59 AM CDT FINDINGS: Cardiac silhouette is normal in size. Lungs are clear without consolidation, atelectasis, mass or edema. There is no pleural effusion. There is no pneumothorax. There are no acute osseous fin dings. IMPRESSION: Clear lungs. Electronically signed by: Vic Mathias MD 11/12/2023 06:48 AM CDT Due to temporary technical issues with the PACS/Fluency reporting system, reports are being signed by the in house radiologist without review as a courtesy to ensure prompt reporting. The interpreting r adiologist is fully responsible for the content of the report.
--- NOTE | 2023-11-12 12:55 | EKG ---
Test Date: 2023-11-12 Test Time: 06:07:42 Nursing Scheduler: RICHARD MEASUREMENT RESULTS: Intervals: Rate: 68 NC: 180 QRSD: 166 QT: 454 QTc: 482 [place]: P: 42 NC: 180 QRS: -84 T: 34 INTERPRETIVE STATEMENTS: Normal sinus rhythm Right bundle branch block Left anterior fascicular block Bifascicular block Abnormal ECG Compared to ECG 11/08/2023 13:16:16 No significant changes Electronically Signed On 11-12-23 12:54:31 CDT by Sravan Levi
== END 2023-11-12 07:55 | disposition home or self-care (01) ==
LOC: ER 05:48
DX: I10 Essential (primary) hypertension (principal); R00.2 Palpitations
CPT/HCPCS: 36415; 71045; 80048; 80076; 83735; 83880; 84484; 85025; 85610; 93005; 99284

== ENCOUNTER 2023-12-23 11:29 | Observation (INO) | payer OTHER ==
--- OUTSIDE RECORDS SUMMARY | 2023-12-23 11:32 | XMS REPORT | Continuity of Care Document ---
Author Name Unknown Address [address] [place] [address] [employer] Address [address] [place] [address] [address] [place] [address] Care Team Providers Care Oracle R12 Developer Name Role Phone Unavailable Unavailable Unavailable Payers Payer Name Policy Type Policy Number Effective Date Expirati on Date Source [facility] [id number] Encounters Start Date/Time End Date/Time Encounter Type Admission Type Attending [facility] Care Department Encounter ID Source 2021-05-01 08:11:17 Outpatient [facility] [id number] [facility], [facility]
[2023-12-23 12:26] LABS: Absolute Lymphocytes (CBC) 0.9 K/uL (0.7-4.9); Absolute Monocytes 1.1 K/uL (0.1-1.3); Basophils % 0.3 % (0-1.3); Eosinophils % 0.2 % (0-4.4); Hematocrit 47.4 % (39.6-49.0); Hemoglobin 16.1 g/dL (13.6-17.9); Lymphocytes % 10.5 % (15.3-44.8); MCH 30.2 pg (27.0-35.0); Platelets 167 thou/uL (152-406); RBC Red Blood Cell Count 5.33 M/uL (4.33-5.43); Red Cell Distribution Width 13.3 % (12.1-15.2)
[2023-12-23 12:29] LABS: PT Prothrombin Time 13.3 SECONDS (9.5-12.5); Protime INR 1.22
[2023-12-23 12:46] LABS: Albumin 3.9 g/dL (3.4-5.0); Albumin/Globulin Ratio 1.2 (1.1-1.8); Anion Gap 8.5 mEq/L (5.0-15.0); Bilirubin Direct 0.2 mg/dL (0-0.2); Bilirubin Indirect, Calculated 0.6 mg/dL (0.2-0.8); Bilirubin Total 0.8 mg/dL (0.2-1.0); Globulin 3.2 g/dL (2.3-3.5); Magnesium 2.2 mg/dL (1.6-2.4); Potassium 3.5 mEq/L (3.5-5.1); Protein, Total 7.1 g/dL (6.4-8.2); Troponin High Sensitivity 6.1 pg/mL (<58.9)
--- NOTE | 2023-12-23 13:09 | RAD REPORT ---
EXAM DESCRIPTION: RAD - Chest Single View - 12/23/2023 12:58 pm CLINICAL HISTORY: DYSPNEA COMPARISON: Chest Single View dated 12/16/2023; Chest Single View dated 12/04/2023; Chest Single View d ated 11/12/2023; Chest Single View dated 11/08/2023 FINDINGS: Lines: None. Lungs: No evidence of edema or pneumonia. Pleural: No significant pleural effusions or pneumothorax. Cardiac: The heart size is within normal limits. Mediastinum: Within normal limits. Bones: No acute fractures. Other: None IMPRESSION: No acute cardiopulmonary disease.
--- NOTE | 2023-12-23 13:19 | EDPHYS ---
Physician Documentation [facility] Name: Roland Barton Age: 73 yrs Sex: Male : 1950 Arrival Date: 12/23/2023 Time: 11:29 Bed 8 Private MD: ED Physician Ehsan Blackwell HPI: 12/22 12:06 This 73 yrs old Male presents to ER via Wheelchair with complaints of Shortness Of sp3 Breath. 12:06 73-year-old male with history of hypertension, ventricular tachycardia, stent placed sp3 approximately 4 weeks ago currently on Plavix presents to the ED for recurrent shortness of breath on exertion. Patient's last visit was 12/15 with workup and subsequent discharged by ED provider. Patient states that the symptoms have continued and over the last 2 days of gotten worse. The episodes last approximately 15 to 30 minutes and are mainly dyspnea particularly on exertion. He denies any chest pain, back pain, syncope, jaw pain, extremity pain or any other anginal equivalents. Patient is been compliant on his medications. He also states that his blood pressure has been elevated with a.m. blood pressure being 175 systolic. He denies any other symptoms including fever, headache, abdominal pain, vomiting, diarrhea, back pain, or any other signs or symptoms on ROS at this time.. Historical: - Allergies: 11:38 No Known Allergies; as6 - PMHx: 11:38 Hypertensive disorder; VT; as6 - PSHx: 11:38 cardiac stents; as6 - Immunization history:: Adult Immunizations up to date. - Infectious Disease History:: Denies. - Social history:: Smoking status: Patient denies any tobacco usage or history of. ROS: 12:07 Constitutional: Negative for fever, chills, and weight loss, Eyes: Negative for injury, sp3 pain, redness, and discharge, Neck: Negative for injury, pain, and swelling, Abdomen/GI: Negative for abdominal pain, nausea, vomiting, diarrhea, and constipation, Back: Negative for injury and pain, MS/Extremity: Negative for injury and deformity, Skin: Negative for injury, rash, and discoloration, Neuro: Negative for headache, weakness, numbness, tingling, and seizure, Psych: Negative for depression, anxiety, suicide ideation, homicidal ideation, and hallucinations, Allergy/Immunology: Negative for hives, rash, and allergies, Endocrine: Negative for neck swelling, polydipsia, polyuria, polyphagia, and marked weight changes, Hematologic/Lymphatic: Negative for swollen nodes, abnormal bleeding, and unusual bruising, 12:07 All other systems are negative, Exam: 12:07 Constitutional: This is a well developed, well nourished patient who is awake, alert, sp3 and in no acute distress. Head/Face: Normocephalic, atraumatic. Eyes: Pupils equal round and reactive to light, extra-ocular motions intact. Lids and lashes normal. Conjunctiva and sclera are non-icteric and not injected. Cornea within normal limits. Periorbital areas with no swelling, redness, or edema. ENT: Nares patent. No nasal discharge, no septal abnormalities noted. External auditory canals are clear. Oropharynx with no redness, swelling, or masses, exudates, or evidence of obstruction, uvula midline. Mucous membranes moist. Neck: Trachea midline, no thyromegaly or masses palpated, and no cervical lymphadenopathy. Supple, full range of motion without nuchal rigidity, or vertebral point tenderness. No Meningismus. Chest/axilla: Normal chest wall appearance and motion. Nontender with no deformity. No lesions are appreciated. Cardiovascular: Regular rate and rhythm with a normal S1 and S2. No gallops, murmurs, or rubs. Normal PMI, no JVD. No pulse deficits. Respiratory: Lungs have equal breath sounds bilaterally, clear to auscultation and percussion. No rales, rhonchi or wheezes noted. No increased work of breathing, no retractions or nasal flaring. Abdomen/GI: Soft, non-tender, with normal bowel sounds. No distension or tympany. No guarding or rebound. No evidence of tenderness throughout. Back: No spinal tenderness. No costovertebral tenderness. Full range of motion. Skin: Warm, dry with normal turgor. Normal color with no rashes, no lesions, and no evidence of cellulitis. MS/ Extremity: Pulses equal, no cyanosis. Neurovascular intact. Full, normal range of motion. Neuro: Awake and alert, GCS 15, oriented to person, place, time, and situation. Cranial nerves II-XII grossly intact. Motor strength 5/5 in all extremities. Sensory grossly intact. Cerebellar exam normal. Normal gait. Psych: Awake, alert, with orientation to person, place and time. Behavior, mood, and affect are within normal limits. 13:15 ECG was reviewed by the Attending Physician. EKG demonstrates right bundle branch block sp3 nonspecific ST's ST changes without evidence of acute ischemia. QTc at 489. Vital Signs: 11:37 Pulse 64; Resp 20 S; Temp 97.8(TE); Pulse Ox 100% on R/A; Weight 95.25 kg; Height 6 ft. as6 5 in. ; Pain 0/10; 11:38 BP 146 / 83; as6 11:53 BP 155 / 103; Pulse 67; Resp 18; Pulse Ox 98% on R/A; db 12:21 BP 129 / 86; kc6 12:42 BP 145 / 92; Pulse 73; Resp 18 S; Pulse Ox 100% on R/A; kc6 13:59 BP 139 / 99; Pulse 68; Resp 18 S; Pulse Ox 96% on R/A; kc6 14:30 BP 151 / 99; Pulse 72; Resp 16; Temp 97.8; Pulse Ox 97% on R/A; db 15:27 BP 140 / 98; Pulse 68; Resp 18 S; Pulse Ox 96% on R/A; kc6 11:37 Body Mass Index 24.90 (95.25 kg, 195.58 cm) as6 11:37 Pain Scale: Adult as6 MDM: 11:40 Patient medically screened. sp3 12:08 Data reviewed: vital signs, nurses notes, old medical records, lab test result(s), EKG, sp3 radiologic studies. ED course: 73-year-old male with shortness of breath and recent stent placement and cardiac history. Given this is a recurrent visit, I am leaning towards observation under Dr. Arrieta with Dr. Levi as his group fitness instructor since he is the one who placed a stent. Differential diagnosis includes stent reocclusion, congestive heart failure, recurrent arrhythmia, ACS, among others. I am not suspicious for primary pulmonary pathology including pneumonia, PE, or other vascular pathology. Workup will include standard cardiac workup and observation.. 13:15 ED course: Discussed with Dr. Arrieta who agrees that patient should be observed. He is 3 out of town and asked to admit to the hospitalist service.. 12/22 11:56 Order name: Basic Metabolic Panel; Complete Time: 12:48 sp3 12/22 11:56 Order name: CBC with Diff; Complete Time: 12:46 sp3 12/22 11:56 Order name: LFT's; Complete Time: 12:48 sp3 12/22 11:56 Order name: Magnesium; Complete Time: 12:48 sp3 12/22 11:56 Order name: NT PRO-BNP; Complete Time: 12:48 sp3 12/22 11:56 Order name: PT-INR; Complete Time: 12:46 sp3 12/22 11:56 Order name: Troponin HS; Complete Time: 12:48 sp3 12/22 13:52 Order name: Basic Metabolic Panel EDMS 12/22 13:52 Order name: Basic Metabolic Panel EDMS 12/22 13:52 Order name: CBC with Automated Diff EDMS 12/22 13:52 Order name: CBC with Automated Diff EDMS 12/22 13:52 Order name: Troponin High Sensitivity EDMS 12/22 13:52 Order name: Troponin High Sensitivity EDMS 12/22 13:52 Order name: Troponin High Sensitivity EDMS 12/22 11:56 Order name: XRAY Chest (1 view); Complete Time: 13:11 sp3 12/22 11:56 Order name: EKG; Complete Time: 11:56 sp3 12/22 13:52 Order name: CONS Physician Consult EDMS 12/22 13:52 Order name: EKG Electrocardiogram EDMS 12/22 13:52 Order name: EKG Electrocardiogram EDMS 12/22 13:52 Order name: EKG Electrocardiogram EDMS 12/22 13:52 Order name: EKG Electrocardiogram EDMS 12/22 11:56 Order name: Cardiac monitoring; Complete Time: 12:20 sp3 12/22 11:56 Order name: EKG - Nurse/Tech; Complete Time: 12:20 sp3 12/22 11:56 Order name: IV Saline Lock; Complete Time: 12:20 sp3 12/22 11:56 Order name: Labs collected and sent; Complete Time: 12:20 sp3 12/22 11:56 Order name: O2 Per Protocol; Complete Time: 12:05 sp3 12/22 11:56 Order name: O2 Sat Monitoring; Complete Time: 12:05 sp3 Administered Medications: No medications were administered Disposition Summary: 12/23/23 13:18 Hospitalization Ordered Notes: Hospitalization Status: Observation sp3 Provider: Carroll Christie spZe Location: Telemetry/MedSurg (observation) sp3 Condition: Stable sp3 Problem: an acute exacerbation sp3 Symptoms: have worsened sp3 Bed/Room Type: Standard sp3 Room Assignment: 205(12/23/23 15:05) eb Diagnosis - Dyspnea, anginal equivalent post stent placement sp3 Forms: - Medication Reconciliation Form sp3 - SBAR form sp3 - Leadership Thank You Letter sp3 Signatures: Dispatcher [employer] EDAmisha Oakes Setul, MD MD sp3 Stefano Hubbard RN RN as6 Corrections: (The following items were deleted from the chart) 15:05 13:18 sp3 eb
--- NOTE | 2023-12-23 13:19 | ER ---
Nurse's Notes [facility] Name: Roland Barton Age: 73 yrs Sex: Male : 1950 Arrival Date: 12/23/2023 Time: 11:29 Bed 8 Private MD: Diagnosis: Dyspnea, anginal equivalent post stent placement Presentation: 12/22 11:37 Chief complaint: Patient states: shortness of breath that has been worsening over the as6 last 2 days. Coronavirus screen: At this time, the client does not indicate any symptoms associated with coronavirus-19. Ebola Screen: No symptoms or risks identified at this time. Initial Sepsis Screen: Does the patient meet any 2 criteria? No. Patient's initial sepsis screen is negative. Does the patient have a suspected source of infection? No. Patient's initial sepsis screen is negative. Risk Assessment: Do you want to hurt yourself or someone else? Patient reports no desire to harm self or others. Onset of symptoms was December 21, 2023. 11:37 Method Of Arrival: Wheelchair as6 11:37 Acuity: ALEXIA 2 as6 Historical: - Allergies: 11:38 No Known Allergies; as6 - PMHx: 11:38 Hypertensive disorder; VT; as6 - PSHx: 11:38 cardiac stents; as6 - Immunization history:: Adult Immunizations up to date. - Infectious Disease History:: Denies. - Social history:: Smoking status: Patient denies any tobacco usage or history of. Screenin:54 [facility] ED Fall Risk Assessment (Adult) History of falling in the last 3 months, db including since admission No falls in past 3 months (0 pts) Confusion or Disorientation No (0 pts) Intoxicated or Sedated No (0 pts) Impaired Gait No (0 pts) Mobility Assist Device Used No (0 pt) Altered Elimination No (0 pt) Score/Fall Risk Level 0 - 2 = Low Risk Oriented to surroundings, Maintained a safe environment. Abuse screen: Denies threats or abuse. Denies injuries from another. Nutritional screening: No deficits noted. Tuberculosis screening: No symptoms or risk factors identified. Assessment: 11:52 Reassessment: Patient appears in no apparent distress at this time. Patient and/or db family updated on plan of care and expected duration. Pain level reassessed. Patient is alert, oriented x 3, equal unlabored respirations, skin warm/dry/pink. SHORTNESS OF BREATH AND HIGH BP SEEN LAST SUNDAY FOR SAME SYMPTOMS. General: Appears in no apparent distress. comfortable, Behavior is calm, cooperative. Pain: Denies pain. Neuro: Level of Consciousness is awake, alert, obeys commands, Oriented to person, place, time, situation. Respiratory: Airway is patent Respiratory effort is even, unlabored, Respiratory pattern is regular, symmetrical. 12:42 Reassessment: Patient appears in no apparent distress at this time. No changes from kc6 previously documented assessment. Patient and/or family updated on plan of care and expected duration. Pain level reassessed. Patient is alert, oriented x 3, equal unlabored respirations, skin warm/dry/pink. 13:42 Reassessment: Patient appears in no apparent distress at this time. No changes from kc6 previously documented assessment. Patient and/or family updated on plan of care and expected duration. Pain level reassessed. Patient is alert, oriented x 3, equal unlabored respirations, skin warm/dry/pink. 15:11 Reassessment: Patient appears in no apparent distress at this time. Patient and/or db family updated on plan of care and expected duration. Pain level reassessed. Patient is alert, oriented x 3, equal unlabored respirations, skin warm/dry/pink. Reassessment: Patient appears in no apparent distress at this time. Patient and/or family updated on plan of care and expected duration. Pain level reassessed. Patient is alert, oriented x 3, equal unlabored respirations, skin warm/dry/pink. Cardiovascular: Rhythm is regular. Respiratory: Breath sounds are clear bilaterally. Vital Signs: 11:37 Pulse 64; Resp 20 S; Temp 97.8(TE); Pulse Ox 100% on R/A; Weight 95.25 kg; Height 6 ft. as6 5 in. ; Pain 0/10; 11:38 BP 146 / 83; as6 11:53 BP 155 / 103; Pulse 67; Resp 18; Pulse Ox 98% on R/A; db 12:21 BP 129 / 86; kc6 12:42 BP 145 / 92; Pulse 73; Resp 18 S; Pulse Ox 100% on R/A; kc6 13:59 BP 139 / 99; Pulse 68; Resp 18 S; Pulse Ox 96% on R/A; kc6 14:30 BP 151 / 99; Pulse 72; Resp 16; Temp 97.8; Pulse Ox 97% on R/A; db 15:27 BP 140 / 98; Pulse 68; Resp 18 S; Pulse Ox 96% on R/A; kc6 11:37 Body Mass Index 24.90 (95.25 kg, 195.58 cm) as6 11:37 Pain Scale: Adult as6 ED Course: 11:30 Patient arrived in ED. ts1 11:31 Ehsan Blackwell MD is Attending Physician. sp3 11:38 Triage completed. as6 11:38 Arm band placed on right wrist. as6 11:52 Carolina Arreola, RN is Primary Nurse. db 11:54 Bed in low position. Call light in reach. Side rails up X 1. court recording monitor on. Pulse db ox on. NIBP on. 12:20 Inserted saline lock: 20 gauge in right antecubital area, using aseptic technique. kc6 Blood collected. 13:00 XRAY Chest (1 view) In Process Unspecified. EDMS 13:17 Carroll Christie MD is Hospitalizing Provider. sp3 15:12 No provider procedures requiring assistance completed. Patient transferred, IV remains db in place. 15:14 Provided Education on: ADMISSION. db Administered Medications: No medications were administered Medication: 15:11 VIS not applicable for this client. db Outcome: 13:18 Decision to Hospitalize by Provider. sp3 15:14 Admitted to ER Hold. Please see [facility] for further documentation. db 15:14 Condition: stable 15:14 Instructed on the need for admit, 16:07 Patient left the ED. kc6 Signatures: Dispatcher [employer] EDMS Ehsan Blackwell MD MD sp3 Stefano Hubbard RN RN as6 Campbell, Kaitlyn, RN RN Carolina Yee, RN RN Sasha Puentes PAS PAS ts1
--- NOTE | 2023-12-23 13:26 | P.HP ---
Certification for Inpatient Patient admitted to: Observation With expected LOS: <2 Midnights Patient will require the following post-hospital care: None Practitioner: I am a practitioner with admitting privileges, knowledge of patient current condition, hospital course, and medical plan of care. Services: Services provided to patient in accordance with Admission requirements found in Title 42 Section 412.3 of the Code of Federal Regulations <ReyesLu - Last Filed: 12/23/23 14:25> Patient History Date of Service: 12/23/23 Reason for admission: hypertension, stable angina History of Present Illness: Records review - normal echo (11/08/23), LHC successful to LAD (11/16/23), Switched from Brilinta to Plavix 2nd to shortness of breath (12/04/23), CT PE protocol negative (12/16/23), pt in ED for angina/sob - will admit for obs trend tele, trop, s/s, and vs with consult to Cardiology Home medications list reviewed: Yes - Past Medical/Surgical History Diabetic: No -: Hyperlipidemia -: BPH -: CAD -: None -: LAD PCI Psychosocial/ Personal History: Patient is retired, lives home with his - Family History Father -: Heart disease - Social History Smoking Status: Never smoker Alcohol use: Yes CD- Drugs: No Caffeine use: Yes Place of Residence: Home <Lu Reyes - Last Filed: 12/23/23 14:25> Date of Service: 12/23/23 <Carroll Christie - Last Filed: 12/23/23 14:50> Allergies No Known Allergies Allergy (Verified 11/14/23 12:53) Home Medications: Mirabegron [Myrbetriq] 25 mg PO DAILY 11/08/23 Rosuvastatin [Crestor*] 10 mg PO BEDTIME 11/08/23 Aspirin Chewable [Aspirin Chewable*] 81 mg PO DAILY 12/04/23 Clopidogrel Bisulfate [Plavix*] 75 mg PO DAILY 90 Days #90 tab 12/04/23 Metoprolol Succinate 25 mg PO DAILY 12/04/23 Review of Systems 10-point ROS is otherwise unremarkable Gastrointestinal: Other (dyspepsia) <Lu Reyes - Last Filed: 12/23/23 14:25> Physical Examination - Physical Exam General: Alert, In no apparent distress, Oriented x3 HEENT: Atraumatic, Normocephalic Neck: Supple, 2+ carotid pulse no bruit Respiratory: Normal air movement Cardiovascular: No edema, Normal pulses Capillary refill: <2 Seconds Gastrointestinal: Normal bowel sounds, Soft and benign Integumentary: No rashes Neurological: Normal speech, Normal tone, Normal affect Lymphatics: No axilla or inguinal lymphadenopathy Rectal: Deferred - Studies Laboratory Data (last 24 hrs) 12/23/23 12/23/23 12/23/23 12:19 12:19 12:19 WBC 9.10 Hgb 16.1 Hct 47.4 Plt Count 167 PT 13.3 H INR 1.22 Sodium 138 Potassium 3.5 BUN 18 Creatinine 0.98 Glucose 141 H Magnesium 2.2 Total Bilirubin 0.8 AST 18 ALT 47 Alkaline Phosphatase 53 <Lu Reyes - Last Filed: 12/23/23 14:25> - Studies Laboratory Data (last 24 hrs) 12/23/23 12/23/23 12/23/23 12:19 12:19 12:19 WBC 9.10 Hgb 16.1 Hct 47.4 Plt Count 167 PT 13.3 H INR 1.22 Sodium 138 Potassium 3.5 BUN 18 Creatinine 0.98 Glucose 141 H Magnesium 2.2 Total Bilirubin 0.8 AST 18 ALT 47 Alkaline Phosphatase 53 <Carroll Christie - Last Filed: 12/23/23 14:50> Assessment and Plan - Plan Stable angina Records review - normal echo (11/08/23), LHC successful to LAD (11/16/23), Switched from Brilinta to Plavix 2nd to shortness of breath (12/04/23), CT PE protocol negative (12/16/23), pt in ED for angina/sob - will admit for obs trend tele, trop, s/s, and vs Consult Cardiology Imdur? hx of VT Telemetry norco prn pain HTN Continue current medication regimen per Dr. Levi's orders Pt saw Dr. Dowling last and Lopressor was increased to 50mg po daily. Will try 25mg po BID. (pt states his blood pressure increases in the night and then he becomes dyspneic. Dyspepsia Protonix 40mg IV BID Code Status: full Discharge Plan: Home Plan to discharge in: 24 Hours - Advance Directives Does patient have a Living Will: No Does patient have a Durable POA for Healthcare: No - Code Status/Comfort Care Code Status Assessed: Yes (Full) <Lu Reyes - Last Filed: 12/23/23 14:25> Physician Review Additional Text: Pt seen and examined. I agree with the note by the MACHINE CLOTH EXAMINER. Pt is an 73 yo male with past medical history of Htn and VT who presents with elevated BP associated with SOB. Of note pt has stent placement 4 weeks ago. Pt was discharged with Plavix and aspirin. Pt saw Dr. Dowling on 12/16/23 and his cardiac work up was fine. Pt continued to have elevated BP with associated difficulty breathing. The Symptoms persisted despite being compliant with his home meds and he presented in the ER for evaluation. On admission, lab studies show wbc 9.1, Hgb 16.1, K 3.5, Cr 0.98, Na 138, Plt 167, troponin 6.1, and BNP 103. CXR is unremarkable. At bedside, pt is in NAD. He attributed the elevated BP to myrbetriq and he did not take it this am. A/P: Htn: Continue metoprolol 25mg po BID and amlodipine SOB: Likely due to Elevated BP. CXR is unremarkable. BNP is 103 and pt is not obese Hx of CAD: s/p PCI. Will continue aspirin, Plavix, metoprolol, and atorvastatin. Bladder spasm: Will hold Myrbetriq due to htn. Pt will follow up with Urologist in clinic. DVT ppx: SCD. Code: full <Carroll Christie - Last Filed: 12/23/23 14:50>
[2023-12-23] MEDS ORDERED: ACETAMINOPHEN 500 MG TAB PO PRN (13:46)
[2023-12-23] MEDS: AMLODIPINE 5 MG TAB PO SCH (17:40)
[2023-12-23] MEDS: PANTOPRAZOLE 40MG TABLET PO SCH (17:40)
[2023-12-23] MEDS ORDERED: METOPROLOL TAR 25 MG TAB PO SCH (18:00)
[2023-12-23 18:12] VITALS: BMI 24.3
[2023-12-23] MEDS: METOPROLOL TAR 25 MG TAB PO SCH (18:25)
[2023-12-23] MEDS: ROSUVASTATIN 10 MG TAB PO SCH (20:51)
[2023-12-23] MEDS ORDERED: ROSUVASTATIN 10 MG TAB PO SCH (21:00)
[2023-12-24 04:08] LABS: Absolute Basophils 0.1 K/uL (0-0.5); Absolute Eosinophils 0.1 K/uL (0-0.5); Absolute Lymphocytes (CBC) 1.8 K/uL (0.7-4.9); Absolute Monocytes 1.3 K/uL (0.1-1.3); Absolute Neutrophil 5.7 K/uL (1.8-8.0); Basophils % 0.7 % (0-1.3); Eosinophils % 0.7 % (0-4.4); Hematocrit 47.9 % (39.6-49.0); Hemoglobin 16.2 g/dL (13.6-17.9); Lymphocytes % 20.7 % (15.3-44.8); MCH 30.8 pg (27.0-35.0); MCHC 33.9 g/dL (32.0-36.0); MCV 90.9 fL (80-100); MPV 9.6 fL (7.6-11.3); Monocytes % 14.7 % (3.3-12.3); Neutrophils % 63.2 % (41.7-73.7); Platelets 156 thou/uL (152-406); RBC Red Blood Cell Count 5.27 M/uL (4.33-5.43); Red Cell Distribution Width 13.6 % (12.1-15.2)
[2023-12-24 04:19] LABS: Anion Gap 6.8 mEq/L (5.0-15.0); Potassium 3.8 mEq/L (3.5-5.1); Troponin High Sensitivity 6.8 pg/mL (<58.9)
--- NOTE | 2023-12-24 07:58 | P.PN ---
Subjective Date of Service: 12/24/23 Chief Complaint: hypertension, stable angina normal echo (11/08/23), LHC successful to LAD (11/16/23), Switched from Brilinta to Plavix 2nd to shortness of breath (12/04/23), CT PE protocol negative (12/16/23), pt in ED for angina/sob - will admit for obs trend tele, trop, s/s, and vs with consult to Cardiology - Physical Exam General: Alert, In no apparent distress, Oriented x3 HEENT: Atraumatic, Normocephalic Neck: Supple, 2+ carotid pulse no bruit Respiratory: Normal air movement Cardiovascular: No edema, Normal pulses Capillary refill: <2 Seconds Gastrointestinal: Normal bowel sounds, Soft and benign Integumentary: No rashes Neurological: Normal speech, Normal tone, Normal affect Lymphatics: No axilla or inguinal lymphadenopathy Review of Systems per HPI Physical Examination - Vital Signs Temperature: 97.0 F Blood Pressure: 163/83 Pulse: 65 Respirations: 18 Pulse Ox (%): 94 - Studies Laboratory Data (last 24 hrs) 12/23/23 12/23/23 12/23/23 12:19 12:19 12:19 WBC 9.10 Hgb 16.1 Hct 47.4 Plt Count 167 PT 13.3 H INR 1.22 Sodium 138 Potassium 3.5 BUN 18 Creatinine 0.98 Glucose 141 H Magnesium 2.2 Total Bilirubin 0.8 AST 18 ALT 47 Alkaline Phosphatase 53 Assessment And Plan - Plan Assessment plan unstable angina Records review - normal echo (11/08/23), LHC successful to LAD (11/16/23), Switched from Brilinta to Plavix 2nd to shortness of breath (12/04/23), CT PE protocol negative (12/16/23), pt in ED for angina/sob - will admit for obs trend tele, trop, s/s, and vs Consult Cardiology Imdur? hx of VT Telemetry norco prn pain HTN Continue current medication regimen per Dr. Levi's orders Pt saw Dr. Dowling last and Lopressor was increased to 50mg po daily. Will try 25mg po BID. (pt states his blood pressure increases in the night and then he becomes dyspneic. Dyspepsia Protonix 40mg IV BID Code Status: full Discharge Plan: Home Plan to discharge in: 24 Hours Discharge Plan: Home Critical Care: No Time Spent Managing PTS Care (In Minutes): 35
--- NOTE | 2023-12-24 08:02 | P.DS ---
Admission Date: 12/23/23 Discharge Date: 12/24/23 Disposition: ROUTINE DISCHARGE Discharge Condition: GOOD Reason for Admission: hypertension, stable angina Brief History of Present Illness: 73-year-old male presented with chest pain. Reports previous left heart cath on 11/16/2023,Switched from Brilinta to Plavix 2nd to shortness of breath (12/04/23), CT PE protocol negative (12/16/23), pt in ED for angina/sob - will admit for obs trend tele, trop, s/s, and vs with consult to Cardiology - Physical Exam General: Alert, In no apparent distress, Oriented x3 HEENT: Atraumatic, Normocephalic Neck: Supple, 2+ carotid pulse no bruit Respiratory: Normal air movement Cardiovascular: No edema, Normal pulses Capillary refill: <2 Seconds Gastrointestinal: Normal bowel sounds, Soft and benign Integumentary: No rashes Neurological: Normal speech, Normal tone, Normal affect Lymphatics: No axilla or inguinal lymphadenopathy Hospital Course: 73-year-old male presented with chest pain. Reports previous left heart cath on 11/16/2023,Switched from Brilinta to Plavix 2nd to shortness of breath (12/04/23), CT PE protocol negative (12/16/23), pt in ED for angina/sob - will admit for obs trend tele, trop, s/s, and vs with consult to Cardiology. Was admitted for observation. Cardiology consulted, serial troponins negative, medications were adjusted, prior to discharge, follow-up with cardiology after discharge Assessment chest pain rule out NV, serial troponins [id number] with cardiology after discharge Recent left heart cath left heart cath on 11/16/2023,Switched from Brilinta to Plavix 2nd to shortness of breath (12/04/23), CT PE protocol negative (12/16/23), pt in ED for angina/sob - Continue aspirin, Plavix, Lopressor 25 p.o. twice daily, Norvasc daily, losartan 25 daily Continue home medicines as previously prescribed GOAL: Clear understanding of disease process INSTRUCTIONS: Physician Discharge Instructions: -Follow-up with PCP in 1 to 2 weeks -Please call Dr. Dumont at [phone] if any questions regarding hospital stay -Please call nursing station at [phone] if any nursing or medication que stions -Return to the emergency room if symptoms worsen Diet: ADA, low sodium Activity: Fall precautions Vital Signs/Physical Exam: Temp Pulse Resp BP Pulse Ox 97.0 F 65 18 163/83 H 94 12/24/23 07:58 12/24/23 07:58 12/24/23 07:58 12/24/23 07:58 12/24/23 07:58 Laboratory Data at Discharge: WBC 8.90 thou/uL (4.3-10.9) 12/24/23 03:29 Hgb 16.2 g/dL (13.6-17.9) 12/24/23 03:29 Hct 47.9 % (39.6-49.0) 12/24/23 03:29 Plt Count 156 thou/uL (152-406) 12/24/23 03:29 PT 13.3 SECONDS (9.5-12.5) H 12/23/23 12:19 INR 1.22 12/23/23 12:19 Sodium 139 mEq/L (136-145) 12/24/23 03:29 Potassium 3.8 mEq/L (3.5-5.1) 12/24/23 03:29 BUN 19 mg/dL (7-18) H 12/24/23 03:29 Creatinine 1.02 mg/dL (0.70-1.30) 12/24/23 03:29 Glucose 107 mg/dL (74-106) H 12/24/23 03:29 Magnesium 2.2 mg/dL (1.6-2.4) 12/23/23 12:19 Total Bilirubin 0.8 mg/dL (0.2-1.0) 12/23/23 12:19 AST 18 U/L (15-37) 12/23/23 12:19 ALT 47 U/L (16-61) 12/23/23 12:19 Alkaline Phosphatase 53 U/L (45-117) 12/23/23 12:19 Home Medications: Mirabegron [Myrbetriq] 25 mg PO DAILY 11/08/23 Rosuvastatin [Crestor*] 10 mg PO BEDTIME 11/08/23 Aspirin Chewable [Aspirin Chewable*] 81 mg PO DAILY 12/04/23 Clopidogrel Bisulfate [Plavix*] 75 mg PO DAILY 90 Days #90 tab 12/04/23 Metoprolol Succinate 25 mg PO DAILY 12/04/23 Amlodipine [Norvasc*] 5 mg PO DAILY tab 12/24/23 Clopidogrel Bisulfate [Plavix*] 75 mg PO DAILY 12/24/23 Losartan Potassium [Cozaar*] 25 mg PO DAILY #15 tab 12/24/23 Metoprolol Tartrate [Lopressor*] 25 mg PO BID 6AM 6PM tab 12/24/23 Rosuvastatin [Crestor*] 10 mg PO BEDTIME tab 12/24/23 New Medications: Losartan Potassium [Cozaar*] 25 mg PO DAILY #15 tab Physician Discharge Instructions: -DC IV and DC home -Follow-up with PCP in 1 to 2 weeks -Follow-up with Cardiology in 1 to 2 weeks -Please call Dr. Dumont at [phone] if any questions regarding hospital stay -Please call nursing station at [phone] if any nursing or medication questions -Return to the emergency room if symptoms worsen Diet: Low sodium Activity: Fall precautions Followup: Rigo Arrieta MD [Primary Care Provider] - 1-2 Weeks Time spent managing pt's care (in minutes): 55
[2023-12-24] MEDS: ASPIRIN EC 81 MG TAB PO SCH (10:18)
[2023-12-24] MEDS: CLOPIDOGREL 75 MG TABLET PO SCH (10:19)
[2023-12-24] MEDS ORDERED: ALPRAZOLAM 0.25 MG TABLET PO PRN (10:41)
--- NOTE | 2023-12-24 10:47 | P.CNS ---
Date of Consult: 12/24/23 Chief Complaint: hypertension, stable angina History of Present Illness: Patient with PMH of CAD s/p PCI LAD, presented with high BP, Anxiety, chest discomfort, denies SOB, Palpitations, no syncope. Allergies No Known Allergies Allergy (Verified 11/14/23 12:53) Home Medications: Mirabegron [Myrbetriq] 25 mg PO DAILY 11/08/23 Rosuvastatin [Crestor*] 10 mg PO BEDTIME 11/08/23 Aspirin Chewable [Aspirin Chewable*] 81 mg PO DAILY 12/04/23 Clopidogrel Bisulfate [Plavix*] 75 mg PO DAILY 90 Days #90 tab 12/04/23 Metoprolol Succinate 25 mg PO DAILY 12/04/23 - Past Medical/Surgical History Diabetic: No -: Hyperlipidemia -: BPH -: CAD -: None -: LAD PCI Psychosocial/ Personal History: Patient is retired, lives home with his - Family History Father Medical History: Heart disease - Social History Alcohol use: Yes CD- Drugs: No Caffeine use: Yes Place of Residence: Home Review of Systems 10-point ROS is otherwise unremarkable Physical Examination Temp Pulse Resp BP Pulse Ox 97.2 F 58 16 133/79 96 12/24/23 08:00 12/24/23 08:00 12/24/23 08:00 12/24/23 08:00 12/24/23 08:00 General: Alert, In no apparent distress HEENT: Atraumatic, PERRLA, Mucous membr. moist/pink, EOMI, Sclerae nonicteric Neck: Supple, 2+ carotid pulse no bruit, No LAD, Without JVD or thyroid abnormality Respiratory: Clear to auscultation bilaterally, Normal air movement Cardiovascular: Regular rate/rhythm, Normal S1 S2 Gastrointestinal: Normal bowel sounds, No tenderness Musculoskeletal: No tenderness Integumentary: No rashes Neurological: Normal gait, Normal speech, Normal tone, Normal affect Lymphatics: No axilla or inguinal lymphadenopathy Laboratory Data (last 24 hrs) 12/23/23 12/23/23 12/23/23 12:19 12:19 12:19 WBC 9.10 Hgb 16.1 Hct 47.4 Plt Count 167 PT 13.3 H INR 1.22 Sodium 138 Potassium 3.5 BUN 18 Creatinine 0.98 Glucose 141 H Magnesium 2.2 Total Bilirubin 0.8 AST 18 ALT 47 Alkaline Phosphatase 53 - Problems (1) CAD (coronary artery disease) Current Visit: Yes Status: Acute Plan: Troponin negative x3 continue ASA and Plavix. (2) HTN (hypertension) Current Visit: No Status: Acute Plan: agree with Lopressor 25 mg po BID Norvasc 5 mg daily Add Losartan 25 mg daily (3) NSVT (nonsustained ventricular tachycardia) Current Visit: No Status: Acute Plan: Continue Lopressor 25 mg po BID
[2023-12-24 11:11] VITALS: O2SAT 97
[2023-12-24] MEDS: LOSARTAN POTASSIUM 50 MG TABLET PO SCH (11:45)
[2023-12-24 16:30] VITALS: BP 135/87; TEMP 97.2
--- NOTE | 2023-12-25 15:13 | EKG ---
Test Date: 2023-12-23 Test Time: 12:11:15 Medical Records Auditor: SHOSHANA MEASUREMENT RESULTS: Intervals: Rate: 68 AK: 176 QRSD: 174 QT: 464 QTc: 493 [place]: P: 50 AK: 176 QRS: -83 T: 36 INTERPRETIVE STATEMENTS: Normal sinus rhythm Right bundle branch block Left anterior fascicular block Bifascicular block Minimal voltage criteria for LVH, may be normal variant Septal infarct, age undetermined Abnormal ECG Compared to ECG 12/23/2023 12:10:37 No significant changes Electronically Signed On 12-25-23 15:07:14 CDT by Sravan Levi
--- NOTE | 2023-12-25 15:13 | EKG ---
Test Date: 2023-12-23 Test Time: 12:10:37 Retail Performance Coach: SHOSHANA MEASUREMENT RESULTS: Intervals: Rate: 68 PA: 178 QRSD: 172 QT: 460 QTc: 489 [place]: P: 47 PA: 178 QRS: -84 T: 45 INTERPRETIVE STATEMENTS: Normal sinus rhythm Right bundle branch block Left anterior fascicular block Bifascicular block Minimal voltage criteria for LVH, may be normal variant Septal infarct, age undetermined Abnormal ECG Compared to ECG 12/16/2023 17:24:44 No significant changes Electronically Signed On 12-25-23 15:07:16 CDT by Sravan Levi
== END 2023-12-24 16:35 | disposition home or self-care (01) ==
LOC: ER 11:29 → ERHOLD 14:52 → 2ND 15:25
PROVIDERS: ADMIT Hospitalist; ATTEND Hospitalist
DX: I20.9 Angina pectoris, unspecified (principal); I10 Essential (primary) hypertension; R10.13 Epigastric pain; F41.9 Anxiety disorder, unspecified; I25.10 Atherosclerotic heart disease of native coronary artery without angina pectoris; I47.20 Ventricular tachycardia, unspecified; Z79.82 Long term (current) use of aspirin; Z98.890 Other specified postprocedural states
CPT/HCPCS: 93005 ×2; 85025 ×2; 80048 ×2; 36415; 83735; 85610; 80076; 84484 ×3; 83880; 71045; 99285; G0378 ×3